=== PATIENT | female | born 1995 | race African-American/Black ===

== ENCOUNTER 2020-09-20 13:05 | Emergency (ER) | payer MEDICAID ==
[~2020-09-20] VITALS: Ht 175.3 cm; Wt 80.0 kg
[2020-09-20 13:36] VITALS: BP 100/58
== END 2020-09-20 16:24 | disposition home or self-care (01) ==
LOC: ER 13:05
DX: T19.2XXA Foreign body in vulva and vagina, initial encounter (principal); X58.XXXA Exposure to other specified factors, initial encounter; Y93.89 Activity, other specified; Y92.9 Unspecified place or not applicable; Z88.0 Allergy status to penicillin
CPT/HCPCS: 20520; 99284; Z7610